=== PATIENT | male | born 1975 | race Asian ===

== ENCOUNTER 2018-04-04 20:12 | Emergency (ER) | payer BC ==
[~2018-04-04] VITALS: Ht 167.6 cm; Wt 67.6 kg
[2018-04-04 20:21] VITALS: Ht 167.6 cm; Wt 67.6 kg
[2018-04-04 21:20] LABS: BASOPHIL % 0.5 % (0-2); PLATELET COUNT 252 x10^3mcL (130-400); RED CELL DISTRIBUTION WIDTH 13.4 % (11.5-14.5)
[2018-04-04 21:24] LABS: CALCIUM 8.7 mg/dL (8.5-10.1); CARBON DIOXIDE 29.2 mmol/L (21-32); CHLORIDE SERUM 105 mmol/L (98-107); CREATININE SERUM 0.9 mg/dL (0.7-1.3); GFR1 > 60 mL/min; GLUCOSE SERUM 104 mg/dL (74-106); POTASSIUM SERUM 3.5 mmol/L (3.5-5.1); SODIUM SERUM 145 mmol/L (136-145)
[2018-04-04 21:29] LABS: ALKALINE PHOSPHATASE 74 U/L (46-116); ALT/SGPT 28 U/L (16-63); AST/SGOT 22 U/L (15-37); BILIRUBIN TOTAL 0.61 mg/dL (0.20-1.00); TOTAL PROTEIN, SERUM 7.8 g/dL (6.4-8.2)
[2018-04-04 21:30] LABS: microscopic required? YES; urine erythrocyte 2+ (NEGATIVE)
[2018-04-05 00:12] VITALS: BP 143/105
== END 2018-04-05 01:31 | disposition home or self-care (01) ==
LOC: ED 20:12
PROVIDERS: Emergency Medicine
DX: N23 Unspecified renal colic (principal)
CPT/HCPCS: J1885; J2270; J2405